=== PATIENT | male | born 2000 | race Caucasian/White ===

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

== ENCOUNTER 2022-08-12 07:10 | Emergency (ER) | payer BC, MEDICAID ==
[~2022-08-12] VITALS: Ht 190 cm; Wt 115.0 kg
--- NOTE | 2022-08-12 07:19 | ED Headache ---
General Chief Complaint: Head/Cervical Problems Stated Complaint: HEADACHE History of Present Illness Date Seen by Provider: Aug 12, 2022 Time Seen by Provider: 07:19 Initial Comments 22-year-old male presents with a headache x6 days. Reports that is right sided and stays in the right side. He reports that over the last couple days is just continue to get worse. He was seen 2 days ago in a clinic where they felt he had sinusitis and started on antibiotics and steroids. Reports that the only thing that has been helping was ibuprofen but now its not helping. He reports photophobia. Pain on the whole right side of his head. He denies any injury. No nausea or vomiting. He does not have any neck pain no fevers chills or recent illness. Allergies and Home Medications Allergies Coded Allergies: No Known Drug Allergies (Unverified , 11/08/18) Patient Home Medication List Home Medication List Reviewed: Yes Review of Systems Review of Systems Constitutional: No chills, No dizziness, No fever Eyes: Photophobia Ears, Nose, Mouth, Throat: denies ear pain Respiratory: No cough, No short of breath Cardiovascular: No chest pain, No palpitations Gastrointestinal: No abdominal pain, No nausea, No vomiting Genitourinary: no symptoms reported Musculoskeletal: no symptoms reported Skin: no symptoms reported Psychiatric/Neurological: Headache Past Cuhtmep-Tpkocd-Zitxvh Hx Seasonal Allergies Seasonal Allergies: No Past Medical History Surgeries: Yes (EGD) Adenoidectomy, Tonsillectomy Respiratory: No Cardiac: No Neurological: No Genitourinary: No Gastrointestinal: No Musculoskeletal: No Endocrine: No HEENT: Yes (S/P T&A) Tonsilitis Cancer: No Psychosocial: Yes (history of self harm to right shoulder;OD'D ON OTC MEDS + CUT WRISTS 2018) Suicide Attempts, Depression Integumentary: No Blood Disorders: No Physical Exam Vital Signs Vital Signs - First Documented 08/12/22 07:15 Temp 36.8 Pulse 77 Resp 18 B/P (MAP) 157/83 (107) Pulse Ox 97 O2 Delivery Room Air Capillary Refill : Height, Weight, BMI Height: 5'11.00" Weight: 188lbs. oz. 85.830994mu; 27.00 BMI Method:Actual General Appearance: other (Uncomfortable) HEENT: PERRL/EOMI, pharynx normal Neck: non-tender, full range of motion, supple Cardiovascular: normal peripheral pulses, regular rate, rhythm Respiratory: lungs clear, normal breath sounds Gastrointestinal: non tender, soft Extremities: non-tender, normal inspection Psychiatric: alert, oriented x 3 [place] Nerves: normal hearing, normal speech, PERRL Coordination/Gait: normal gait Motor/Sensory: no motor deficit, no sensory deficit, no pronator drift Skin: normal color, warm/dry Procedures/Interventions Suture Size: 4-0 Progress/Results/Core Measures Results/Orders Lab Results Laboratory Tests Test 08/12/22 07:32 Range/Units White Blood Count 10.3 4.3-11.0 10^3/uL Red Blood Count 4.64 4.30-5.52 10^6/uL Hemoglobin 14.8 13.3-17.7 g/dL Hematocrit 42 40-54 % Mean Corpuscular Volume 91 80-99 fL Mean Corpuscular Hemoglobin 32 25-34 pg Mean Corpuscular Hemoglobin Concent 35 32-36 g/dL Red Cell Distribution Width 12.0 10.0-14.5 % Platelet Count 266 130-400 10^3/uL Mean Platelet Volume 8.9 L 9.0-12.2 fL Immature Granulocyte % (Auto) 1 % Neutrophils (%) (Auto) 68 42-75 % Lymphocytes (%) (Auto) 20 12-44 % Monocytes (%) (Auto) 10 0-12 % Eosinophils (%) (Auto) 1 0-10 % Basophils (%) (Auto) 0 0-10 % Neutrophils # (Auto) 7.0 1.8-7.8 10^3/uL Lymphocytes # (Auto) 2.1 1.0-4.0 10^3/uL Monocytes # (Auto) 1.0 0.0-1.0 10^3/uL Eosinophils # (Auto) 0.1 0.0-0.3 10^3/uL Basophils # (Auto) 0.0 0.0-0.1 10^3/uL Immature Granulocyte # (Auto) 0.1 0.0-0.1 10^3/uL Erythrocyte Sedimentation Rate 10 0-15 MM/HR Sodium Level 137 135-145 MMOL/L Potassium Level 4.1 3.6-5.0 MMOL/L Chloride Level 101 98-107 MMOL/L Carbon Dioxide Level 26 21-32 MMOL/L Anion Gap 10 5-14 MMOL/L Blood Urea Nitrogen 24 H 7-18 MG/DL Creatinine 0.98 0.60-1.30 MG/DL Estimat Glomerular Filtration Rate 113 BUN/Creatinine Ratio 24 Glucose Level 116 H 70-105 MG/DL Calcium Level 9.3 8.5-10.1 MG/DL Corrected Calcium 9.1 8.5-10.1 MG/DL Total Bilirubin < 0.2 0.1-1.0 MG/DL Aspartate Amino Transf (AST/SGOT) 19 5-34 U/L Alanine Aminotransferase (ALT/SGPT) 17 0-55 U/L Alkaline Phosphatase 66 40-136 U/L C-Reactive Protein 0.52 H <0.50 MG/DL Total Protein 7.5 6.4-8.2 GM/DL Albumin 4.3 3.2-4.5 GM/DL Influenza Type A (RT-PCR) Not Detected Not Detecte Influenza Type B (RT-PCR) Not Detected Not Detecte SARS-CoV-2 RNA (RT-PCR) Not Detected Not Detecte My Orders Orders - LISANDRA MENJIVAR DO Cbc With Automated Diff (08/12/22 07:24) Comprehensive Metabolic Panel (08/12/22 07:24) Erythrocyte Sedimentation Rate (08/12/22 07:24) Procalcitonin (Pct) (08/12/22 07:24) Crp Fs (08/12/22 07:24) Influenza A And B By Pcr (08/12/22 07:24) Covid 19 Inhouse Test (08/12/22 07:24) Ct Head Wo (08/12/22 07:24) Metoclopramide Injection (Reglan Injecti (08/12/22 08:02) Ns Iv 1000 Ml (Sodium Chloride 0.9%) (08/12/22 08:02) Ketorolac Injection (Toradol Injection) (08/12/22 08:02) Diphenhydramine Injection (Benadryl Inje (08/12/22 08:02) Vital Signs/I&O 08/12/22 08/12/22 07:15 08:36 Temp 36.8 36.8 Pulse 77 72 Resp 18 18 B/P (MAP) 157/83 (107) 142/68 Pulse Ox 97 98 O2 Delivery Room Air Room Air Progress Progress Note : Progress Note Patient CT and labs were reviewed. Patient has a negative ESR, very minor CRP negative white count, CT shows sinusitis which is currently just started antibiotics for 2 days ago along with steroids discussed with patient that he will need to continue his treatment. He should follow-up with his primary care provider for recheck if he still having symptoms following his antibiotic since treatment. Patient reports minimal relief from his treatment however discussed with him that that is likely due to it being an acute sinusitis and needing to give antibiotics time. Patient is stable and discharged home Departure Impression Primary Impression: Sinusitis, acute Qualified Codes: J01.90 - Acute sinusitis, unspecified Disposition: HOME, SELF-CARE Condition: Stable Departure-Patient Inst. Referrals: NO,LOCAL PHYSICIAN (PCP/Family) Primary Care Physician Patient Instructions: Sinusitis, Adult ED Add. Discharge Instructions: Recommend he start Flonase/Nasacort twice daily as directed on package, [place] pot or similar nasal rinse. Continue your already prescribed antibiotics and steroids. Follow-up with your primary care provider if you are still having symptoms following completion of your antibiotics All discharge instructions reviewed with patient and/or family. Voiced understanding. LISANDRA MENJIVAR DO Aug 12, 2022 07:19
[2022-08-12 07:38] LABS: BASOPHILS % (AUTO) 0 % (0-10); EOSINOPHILS # (AUTO) 0.1 10^3/uL (0.0-0.3); EOSINOPHILS % (AUTO) 1 % (0-10); HEMATOCRIT 42 % (40-54); HEMOGLOBIN 14.8 g/dL (13.3-17.7); LYMPHOCYTES # (AUTO) 2.1 10^3/uL (1.0-4.0); LYMPHOCYTES % (AUTO) 20 % (12-44); MEAN CORPUSCULAR HEMOGLOBIN 32 pg (25-34); MEAN CORPUSCULAR HGB CONC 35 g/dL (32-36); MEAN CORPUSCULAR VOLUME 91 fL (80-99); MEAN PLATELET VOLUME 8.9 fL (9.0-12.2); MONOCYTES % (AUTO) 10 % (0-12); NEUTROPHILS % (AUTO) 68 % (42-75); PLATELET COUNT 266 10^3/uL (130-400); WHITE BLOOD COUNT 10.3 10^3/uL (4.3-11.0)
--- NOTE | 2022-08-12 07:59 | Diagnostic Imaging Report ---
PROCEDURE: CT head without contrast. TECHNIQUE: Multiple contiguous axial images were obtained through the brain without the use of intravenous contrast. Auto Exposure Controls were utilized during the CT exam to meet ALARA standards for radiation dose reduction. INDICATION: Acute onset headache CT HEAD: CT images of the head were obtained. FINDINGS: Ventricles and sulci are within normal limits for size. There is no intracranial hemorrhage identified. There is no abnormal mass effect or shift of midline structures. There is moderate mural thickening within right maxillary and sphenoid sinuses with mild mural thickening in the left sphenoid and right frontal sinuses. IMPRESSION: No acute intracranial abnormalities identified however there is moderate paranasal sinus disease as described. Dictated by: Dictated on workstation # [id number]
[2022-08-12] MEDS ORDERED: KETOROLAC 30 MG/ML VIAL IVP STA (08:02)
[2022-08-12] MEDS ORDERED: NS IV 1000 ML 1,000 ML IV STA (08:02)
[2022-08-12] MEDS ORDERED: diphenhydrAMINE 50 MG/ML INJ (BENADRYL) IV STA (08:02)
[2022-08-12] MEDS ORDERED: METOCLOPRAMIDE INJ 10 MG/2 ML (REGLAN) IVP STA (08:02)
[2022-08-12 08:03] LABS: CARBON DIOXIDE 26 MMOL/L (21-32); CHLORIDE 101 MMOL/L (98-107); POTASSIUM 4.1 MMOL/L (3.6-5.0); SODIUM 137 MMOL/L (135-145)
[2022-08-12 08:04] LABS: ALANINE AMINOTRANSFERASE 17 U/L (0-55); ALBUMIN 4.3 GM/DL (3.2-4.5); ALKALINE PHOSPHATASE 66 U/L (40-136); BILIRUBIN,TOTAL < 0.2 MG/DL (0.1-1.0); BUN/CREATININE RATIO 24; CALCIUM 9.3 MG/DL (8.5-10.1); CREATININE SERUM 0.98 MG/DL (0.60-1.30); GFR ESTIMATED 113; GLUCOSE 116 MG/DL (70-105); TOTAL PROTEIN 7.5 GM/DL (6.4-8.2)
[2022-08-12 08:36] VITALS: BP 142/68
[2022-08-12 08:43] LABS: ERYTHROCYTE SEDIMENTATION RATE 10 MM/HR (0-15)
== END 2022-08-12 09:07 | disposition home or self-care (01) ==
LOC: EDUNIT# 07:10 → ER FS 07:12
DX: J01.90 Acute sinusitis, unspecified (principal); Z20.822 Contact with and (suspected) exposure to COVID-19; Z28.310 Unvaccinated for COVID-19
CPT/HCPCS: 36415; 70450; 80053; 84145; 85025; 85652; 86141; 87636

== ENCOUNTER 2022-11-11 21:53 | Emergency (ER) | payer BC, MEDICAID, OTHER ==
[2022-11-11 21:58] VITALS: BP 155/102
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
== END 2022-11-11 22:18 ==
LOC: EDUNIT# 21:53 → ER FS 21:55
DX: S50.312A Abrasion of left elbow, initial encounter (principal); Z28.310 Unvaccinated for COVID-19; V87.7XXA Person injured in collision between other specified motor vehicles (traffic), initial encounter; Y92.410 Unspecified street and highway as the place of occurrence of the external cause
CPT/HCPCS: 99281